=== PATIENT | male | born 1965 ===

== ENCOUNTER 2022-06-15 15:11 | Inpatient (IN) | payer MEDICAID ==
[2022-06-15] MEDS ORDERED: ACETAMINOPHEN TAB 325 MG TAB PO PRN (15:16)
[2022-06-15] MEDS ORDERED: HALOPERIDOL LACTATE 5 MG/ML 1 ML VIAL IM PRN (15:16)
[2022-06-15] MEDS ORDERED: ALBUTEROL INHALER 60 PUFF/8 GM INHALER (MHU) INHALATION PRN (15:16)
[2022-06-15] MEDS ORDERED: LORazepam 1 MG/0.5 ML VIAL IM PRN (15:16)
[2022-06-15] MEDS ORDERED: haloperidoL 5 MG TAB PO PRN (15:16)
[2022-06-15] MEDS ORDERED: MAGNESIUM HYDROXIDE 2,400 MG/10 ML CUP PO PRN (15:16)
[2022-06-15] MEDS ORDERED: LORazepam 1 MG TAB PO PRN (15:16)
[2022-06-15] MEDS ORDERED: MAG HYDROX/AL HYDROX/SIMETH 30 ML CUP PO PRN (15:16)
--- NOTE | 2022-06-15 17:49 | P.HPMEDMHU ---
History of Present Illness H&P Date: 06/15/22 Chief Complaint: med management Patient is a 57-year-old male with history of nicotine dependence, psychotic disorder presenting with acute psychosis and suicidal ideations. Patient is being admitted to mental health unit. [facility] has been consulted for medical management. Patient denies any chest pain, shortness of breath, abdominal pain, palpitations, nausea, vomiting, diarrhea, or constipation, or urinary symptoms. He claims that he has a remote hx of HTN, but no longer on meds as he is homeless. Smokes 1/2 ppd, no etoh or drug use. Patient seen and examined at bedside. Pertinent positives and negatives as discussed in HPI, a complete review of systems was performed and all other systems are negative. Vital signs reviewed. General: nontoxic, no distress, appears at stated age Derm: warm, dry Head: atraumatic, normocephalic, symmetric Eyes: EOMI, no lid lag, anicteric sclera, pupils equal round reactive to light ENT: Nose and ears atraumatic Neck: No thyromegaly, supple Mouth: no lip lesion, mucus membranes moist Cardiovascular: S1S2 reg, no murmur, no edema Lungs: clear to auscultation bilateral, no rhonchi, no rales, no wheeze, no accessory muscle use Abdominal: soft, nontender to palpation, no guarding, no appreciable organomegaly Ext: no gross muscle atrophy, muscle strength muscle strength 5 out of 5 in all 4 extremities, no contractures Neuro: CN II-XII grossly intact Psych: Alert, oriented, appropriate affect Assessment/Plan: Acute psychosis Psychotic disorder Suicidal ideations -Management per psychiatry Reported hx of HTN Not on any chronic medications -labs pending Full code Thank you for allowing us to participate in the care of this pleasant patient. Do not hesitate to contact us with questions. Someone can be reached from the [facility] hospitalist group all hours of the day at [phone] or via [employer]. Past Medical History Past Medical History: CVA/TIA, GERD/Reflux, Hypertension, Osteoarthritis (OA), Vascular Disorder History of Any Multi-Drug Resistant Organisms: None Reported Additional Past Surgical History / Comment(s): surgery to right and left shoulder Past Anesthesia/Blood Transfusion Reactions: No Reported Reaction Past Psychological History: Depression Smoking Status: Current every day smoker Past Alcohol Use History: None Reported Additional Past Alcohol Use History / Comment(s): quit 5 years ago. Past Drug Use History: Marijuana Additional Drug Use History / Comment(s): reports he quit this recently. Medications and Allergies Allergies Allergy/AdvReac Type Severity Reaction Status Date / Time No Known Allergies Allergy Verified 06/15/22 15:15 Physical Exam Vitals: Vital Signs Temp Pulse Resp BP Pulse Ox 06/15/22 17:12 97.7 F 73 16 110/78 99 Intake and Output 06/15/22 06/15/22 06/15/22 06:59 14:59 22:59 Other: Weight 78.528 kg Cranial Nerve Examination - Cranial Nerves Cranial Nerve II- Optic: Intact Cranial Nerve III- Oculomotor: Intact Cranial Nerve IV- Trochlear: Intact Cranial Nerve V- Trigeminal: Intact Cranial Nerve - Abducens: Intact Cranial Nerve VII- Facial: Intact Cranial Nerve VIII- Auditory: Intact Cranial Nerve IX- Glossopharyngeal: Intact Cranial Nerve X- Vagus: Intact Cranial Nerve XI- Accessory: Intact Cranial Nerve XII- Hypoglossal: Intact Thrombosis Risk Factor Assmnt - Choose All That Apply Any of the Below Risk Factors Present?: Yes Each Factor Represents 1 point: Age 41-60 years Other Risk Factors: No Other congenital or acquired thrombophilia - If yes, enter type in comment: No Thrombosis Risk Factor Assessment Total Risk Factor Score: 1 Thrombosis Risk Factor Assessment Level: Low Risk
[2022-06-15] MEDS: OLANZapine 5 MG TAB PO SCH (20:37)
[2022-06-16] MEDS ORDERED: PNEUMOC 20-VAL CONJ-DIP CRM/PF 0.5 ML SYRINGE IM ONE (10:00)
[2022-06-16] MEDS ORDERED: INFLUENZA VACC (6 MOS-64 YRS) 60 MCG/0.5 ML SYRINGE IM ONE (10:00)
[2022-06-16] MEDS: NICOTINE 14MG/24HR PATCH TRANSDERM SCH (11:10)
--- NOTE | 2022-06-16 12:55 | P.HP ---
Psychiatric H&P - . H&P Date: 06/16/22 History & Physical: Allergies Allergy/AdvReac Type Severity Reaction Status Date / Time No Known Allergies Allergy Verified 06/15/22 15:15 Vital Signs Temp 97.7 F 06/15/22 17:12 Pulse 73 06/15/22 17:12 Resp 16 06/15/22 17:12 BP 110/78 06/15/22 17:12 Pulse Ox 99 06/15/22 17:12 FiO2 Intake & Output 06/15/22 06/16/22 06/16/22 18:59 06:59 18:59 Weight 78.528 kg 06/16/22 12:54 IDENTIFYING DATA: Patient is a , unemployed, 57 year old - Guamanian male who was admitted under petition and cert from [facility] for suicidal ideation and auditory hallucinations. HPI: Patient presented to the hospital on 06/15/2022 from [facility] under petition and certification for psychosis and suicidal ideation. Upon evaluation on the psychiatric unit, the patient reports that he has been feeling increasingly depressed and suicidal since being kicked out of his home. He reports that he was staying with his ex- up to 3 weeks ago. He does report however that he has been experiencing auditory hallucinations for the past few months. He describes hearing multiple voices are telling him to hurt himself and hurt others. He reports that they're continuing at this moment. He states that he is able to control her urges to hurt himself or others at this time. In regards other depressive symptoms, the patient reports hopelessness and helplessness. He reports difficulty with sleep and a decreased appetite. He reports that he has previously attempted suicide many years ago. He reports that he has been previously diagnosed with schizophrenia however is unable to verbalize any previous medications or previous psychiatric hospitalizations. In regards to substance abuse, the patient does report that he does use crack cocaine. He states that it has been 9 months since his last use however the patient did test positive for cocaine upon admission. PAST PSYCHIATRIC HISTORY: Patient states that he has been intrusive diagnosed as "paranoid schizophrenic." Patient is unable to recall any previous psychiatric medications. Patient denies any previous psychiatric hospitalizations. Patient denies any psychiatric outpatient follow-up. Patient reports remote history of suicide attempts. PMH: Patient reports that he has GERD ALLERGIES: NO KNOWN DRUG ALLERGIES CHEMICAL DEPENDENCY HISTORY: The patient reports that he smokes half pack per day of tobacco. He denies any alcohol. He does report crack cocaine use. He did test positive for cocaine on admission however since that he last used cocaine 9 months ago. FAMILY PSYCHIATRIC/SUBSTANCE USE HISTORY: Reported family psychiatric history. SOCIAL HISTORY: Patient was born and raised in [place], [place]. He reports an eighth grade education. He reports that he is currently . He states he receives Social Security. He is currently homeless. He states that he has 1 daughter whom he is not in contact with. MENTAL STATUS EXAM: General Appearance: Patient appears to be stated age is alert, directable, and attempts to cooperate. Patient appears to have fair hygiene and grooming. Behavior: Patient is seated without any agitated behavior. Eye contact is appropriate. Speech: Patient's speech is fluent and nonpressured. Mood/Affect: Patient reports their mood is depressed, affect is congruent and constricted. Suicidality/Homicidality: Patient denies having any homicidal ideation intent or plan. Patient is currently endorsing suicidal ideation. Perceptions: Patient denies any visual hallucinations and denies any auditory hallucinations Though content/process: There is no evidence of any delusional thought content and thought process is linear and goal-directed. Memory and concentration: AOX3, grossly intact for the purposes of this session. Can spell "WORLD" backwards Judgment and insight: Fair STRENGTHS/WEAKNESSES: strength is that patient is resilient. Weakness is that patient has poor judgment and is impulsive INTELLECT: average IMPRESSIONS: Major depressive disorder, with psychotic features Stimmel and use disorder Tobacco use disorder PLAN: -Patient is admitted under voluntary status to MHU for stabilization of psychiatric symptoms and safety. Patient signed adult voluntary form and medication consent and is placed in patient's chart. -Medications : Will start patient on Zyprexa 5 mg by mouth at bedtime for psychosis Remeron 15 mg by mouth at bedtime for depression -Ativan and Haldol PRN for agitation/aggression -Patient was counselled on substance abuse and desired to cut back on use -Patient was informed of the risks, benefits and side effects of the medication and patient verbally consented to taking the medications. Patient signed med consent form and was placed in chart. -Internal Medicine consult to perform medical evaluation and physical. -NRT - nicotine patch -SW on board for discharge planning. Encourage patient to participate in groups to work on coping skills.
[2022-06-16] MEDS ORDERED: MAG HYDROX/AL HYDROX/SIMETH 355 ML BOTTLE PO PRN (14:59)
[2022-06-16 16:09] LABS: Basophils # (A) 0.1 k/uL (0-0.2); Basophils % (A) 1 %; Eosinophils # (A) 0.2 k/uL (0-0.7); Eosinophils % (A) 4 %; HCT 44.3 % (39.0-53.0); HGB 14.4 gm/dL (13.0-17.5); Lymphocytes # (A) 1.5 k/uL (1.0-4.8); Lymphocytes % (A) 40 %; MCH 30.2 pg (25.0-35.0); MCHC 32.6 g/dL (31.0-37.0); MCV 92.6 fL (80.0-100.0); Mean Platelet Volume 9.5; Monocytes # (A) 0.2 k/uL (0-1.0); Monocytes % (A) 7 %; Neutrophils # (A) 1.7 k/uL (1.3-7.7); Neutrophils % (A) 46 %; Platelet Count 217 k/uL (150-450); RBC 4.78 m/uL (4.30-5.90); RDW 12.9 % (11.5-15.5); WBC 3.7 k/uL (3.8-10.6)
[2022-06-16 16:52] LABS: ALT 22 U/L (4-49); AST 25 U/L (17-59); African American GFR (CKD) 86 (>60 ml/min/1.73 sqM); Albumin 4.3 g/dL (3.5-5.0); Alkaline Phosphatase 109 U/L (38-126); Anion Gap 8 mmol/L; Bilirubin, Delta 0.2 mg/dL (0.0-0.2); Bilirubin,Unconjugated 0.3 mg/dL (0.0-1.1); Blood Urea Nitrogen 15 mg/dL (9-20); Calcium 9.2 mg/dL (8.4-10.2); Carbon Dioxide 28 mmol/L (22-30); Chloride 104 mmol/L (98-107); Glucose 86 mg/dL (74-99); Non-African American GFR(CKD) 74 (>60 ml/min/1.73 sqM); Potassium 4.5 mmol/L (3.5-5.1); Sodium 140 mmol/L (137-145); Total Bilirubin 0.5 mg/dL (0.2-1.3); Total Protein 7.1 g/dL (6.3-8.2)
[2022-06-16] MEDS: PANTOPRAZOLE 40 MG TABLET PO SCH (17:40)
[2022-06-16] MEDS: OLANZapine 5 MG TAB PO SCH (19:59)
[2022-06-16] MEDS ORDERED: MIRTAZAPINE 15 MG TAB PO SCH (21:00)
[2022-06-16 23:40] LABS: Chol/HDL Ratio 2.93 Ratio; LDL Cholesterol,Calculated 73.8 mg/dL (0.0-131.0)
[2022-06-17] MEDS: PANTOPRAZOLE 40 MG TABLET PO SCH (08:42)
[2022-06-17] MEDS: NICOTINE 14MG/24HR PATCH TRANSDERM SCH (08:43)
[2022-06-17 11:07] VITALS: BP 136/98; PULSE 103; RESP 18; TEMP 97.4
--- NOTE | 2022-06-17 11:35 | P.DS ---
Providers Date of admission: 06/15/22 16:24 Expected date of discharge: 06/17/22 Attending physician: Yadiel Mckenzie MD Consults: 06/15/22 15:16 Consult Physician Routine Consulting Provider: Shahab Lira Consult Reason/Comments: Medical H&P Do you want consulting provider notified?: Yes Primary care physician: Stated None - Discharge Diagnosis(es) (1) Major depressive disorder Current Visit: Yes Status: Acute Priority: High (2) Stimulant use disorder Current Visit: Yes Status: Chronic Priority: Medium (3) Tobacco use disorder Current Visit: Yes Status: Chronic Priority: Medium (4) Malingering Current Visit: Yes Status: Suspected Priority: Medium Hospital Course: Admission HPI: Patient is a , unemployed, 57 year old -[place] male who was admitted under petition and cert from [facility] for suicidal ideation and auditory hallucinations. Patient presented to the hospital on 06/15/2022 from [facility] under petition and certification for psychosis and suicidal ideation. Upon evaluation on the psychiatric unit, the patient reports that he has been feeling increasingly depressed and suicidal since being kicked out of his home. He reports that he was staying with his ex- up to 3 weeks ago. He does report however that he has been experiencing auditory hallucinations for the past few months. He describes hearing multiple voices are telling him to hurt himself and hurt others. He reports that they're continuing at this moment. He states that he is able to control her urges to hurt himself or others at this time. In regards other depressive symptoms, the patient reports hopelessness and helplessness. He reports difficulty with sleep and a decreased appetite. He reports that he has previously attempted suicide many years ago. He reports that he has been previously diagnosed with schizophrenia however is unable to verbalize any previous medications or previous psychiatric hospitalizations. In regards to substance abuse, the patient does report that he does use crack cocaine. He states that it has been 9 months since his last use however the patient did test positive for cocaine upon admission. Patient states that he has been intrusive diagnosed as "paranoid schizophrenic." Patient is unable to recall any previous psychiatric medications. Patient denies any previous psychiatric hospitalizations. Patient denies any psychiatric outpatient follow-up. Patient reports remote history of suicide attempts. Hospital course: Upon admission to the unit patient was initially displaying a euthymic affect despite reporting suicidal thoughts and psychosis. Furthermore, the patient did report that he was only suicidal and experiencing psychiatric symptoms because of his new state of homelessness. Patient was however directable and agreeable to commence treatment. Patient got along well with other patients on the unit and followed unit protocol. Patient was compliant with the medications and denied any side effects throughout hospital course. Patient was started on Zyprexa and Remeron for management of psychosis and depression. The patient was also seen by medical team for history and physical examination. He did not attend many groups and preferred to spend the day sleeping in his room. On the day of discharge, the patient is denying any suicidal or homicidal ideation, intention, and/or plan. He is not reporting any auditory or visual hallucinations. He denies any paranoia or delusions. He expresses that he will likely go find a half-way to stay in [facility]. The patient was counseled on importance of medication adherence appropriate outpatient follow-up. The patient does have a significant history of stimulant abuse and tobacco abuse and was counseled great length on abstaining from all the substances. As the patient no longer met criteria for inpatient psychiatric admission, he was subsequently discharged. Mental status exam: General Appearance: Patient appears to be stated age is alert, pleasant, and cooperative. Patient is in no acute distress and has fair hygiene and grooming Behavior: Patient is calmly seated without any agitated behavior. Speech: Patient's speech is fluent and nonpressured. Mood/Affect: Patient reports their mood is "doing okay", affect is congruent and euthymic. Suicidality/Homicidality: Patient denies having any suicidal or homicidal ideation intent or plan. Perceptions: Patient denies any auditory or visual hallucinations. Though content/process: There is no evidence of any delusional thought content and thought process is linear and goal-directed. Patient is future oriented. Memory and concentration: AOX3, grossly intact for the purposes of this session. Can spell "WORLD" backwards correctly. Judgment and insight: Improved with guarded prognosis Impression: Major depressive disorder, with psychotic features Stimulant use disorder Tobacco use disorder Malingering - secondary gain for housing and half-way Plan: -Continue with discharge today as patient has improved and stabilized psychiatrically and is not currently an imminent threat to himself and/or others. Patient will remain at chronically elevated risk for harm to self and/or others due to his substance abuse and homelessness. -Continue medications: Zyprexa 5 mg daily at bedtime for psychosis Remeron 15 mg daily at bedtime for depression/appetite stimulation -Patient was counseled on the need for medication compliance and appropriate follow-up at mental health and also primary care for medical issues. Patient verbalized understanding and agreed. -Social work to arrange for and conduct family meeting to ensure safety upon discharge and answer any questions/concerns. Social work also to arrange for patients follow up appointments for psychiatric care along with follow up with primary care provider. -Patient counseled on abstaining from recreational drugs and marijuana and alcohol. Was informed/educated on the adverse effects on their physical and mental health. Patient verbally agreed and understood. -Patient was instructed to return to the hospital or seek immediate medical care if their psychiatric or medical symptoms do worsen or reoccur. -Psychoeducation and supportive therapy provided to patient. Risks and benefits of pharmacological treatment versus the risks and benefits of nontreatment weight and discussed. Informed consent discussion held. Common side effects of psychotropics discussed such as, but not limited to headache, GI disturbance, sexual dysfunction, movement disorders, sedation, and orthostatic hypotension. Life threatening and blackbox warnings of prescribed medications also discussed. Potential risks of operating a vehicle or heavy machinery discussed with patient at length. Advised on importance of compliance and a reliable and responsible manner. Patient advised to review FDA consumer labeling of all medications prior to taking. Patient verbalized understanding of potential risks, and agrees with current treatment plan. Patient advised to medically contact physician/emergency personnel if any acute changes in condition occur. Vital Signs Temp 97.4 F L 06/17/22 11:06 Pulse 103 H 06/17/22 11:06 Resp 18 06/17/22 11:06 BP 136/98 06/17/22 11:06 Pulse Ox 99 06/15/22 17:12 FiO2 Laboratory Results WBC 3.7 k/uL (3.8-10.6) L 06/16/22 15:26 RBC 4.78 m/uL (4.30-5.90) 06/16/22 15:26 Hgb 14.4 gm/dL (13.0-17.5) 06/16/22 15:26 Hct 44.3 % (39.0-53.0) 06/16/22 15:26 MCV 92.6 fL (80.0-100.0) 06/16/22 15: MCH 30.2 pg (25.0-35.0) 06/16/22 15: MCHC 32.6 g/dL (31.0-37.0) 06/16/22 15: RDW 12.9 % (11.5-15.5) 06/16/22 15: Plt Count 217 k/uL (150-450) 06/16/22 15: MPV 9.5 06/16/22 15: Neutrophils % 46 % 06/16/22 15: Lymphocytes % 40 % 06/16/22 15: Monocytes % 7 % 06/16/22 15: Eosinophils % 4 % 06/16/22 15: Basophils % 1 % 06/16/22 15: Neutrophils # 1.7 k/uL (1.3-7.7) 06/16/22 15: Lymphocytes # 1.5 k/uL (1.0-4.8) 06/16/22 15: Monocytes # 0.2 k/uL (0-1.0) 06/16/22 15: Eosinophils # 0.2 k/uL (0-0.7) 06/16/22 15: Basophils # 0.1 k/uL (0-0.2) 06/16/22 15:26 Sodium 140 mmol/L (137-145) 06/16/22 15:26 Potassium 4.5 mmol/L (3.5-5.1) 06/16/22 15: Chloride 104 mmol/L (98-107) 06/16/22 15: Carbon Dioxide 28 mmol/L (22-30) 06/16/22 15:26 Anion Gap 8 mmol/L 06/16/22 15:26 BUN 15 mg/dL (9-20) 06/16/22 15:26 Creatinine 1.09 mg/dL (0.66-1.25) 06/16/22 15:26 Est GFR (CKD-EPI)AfAm 86 (>60 ml/min/1.73 sqM) 06/16/22 15:26 Est GFR (CKD-EPI)NonAf 74 (>60 ml/min/1.73 sqM) 06/16/22 15:26 Glucose 86 mg/dL (74-99) 06/16/22 15:[address] Glu mg/dL 115 06/16/22 15:26 Hemoglobin A1c 5.6 % (0.0-6.0) 06/16/22 15:26 Calcium 9.2 mg/dL (8.4-10.2) 06/16/22 15:26 Total Bilirubin 0.5 mg/dL (0.2-1.3) 06/16/22 15:26 Conjugated Bilirubin 0.0 mg/dL (0.0-0.3) 06/16/22 15:26 Unconjugated Bilirubin 0.3 mg/dL (0.0-1.1) 06/16/22 15:26 Delta Bilirubin 0.2 mg/dL (0.0-0.2) 06/16/22 15:26 AST 25 U/L (17-59) 06/16/22 15:26 ALT 22 U/L (4-49) 06/16/22 15:26 Alkaline Phosphatase 109 U/L (38-126) 06/16/22 15:26 Total Protein 7.1 g/dL (6.3-8.2) 06/16/22 15:26 Albumin 4.3 g/dL (3.5-5.0) 06/16/22 15:26 Triglycerides 155.00 mg/dL (0.00-149.00) H 06/16/22 15:26 Cholesterol 159.00 mg/dL (0.00-200.00) 06/16/22 15:26 LDL Cholesterol, Calc 73.8 mg/dL (0.0-131.0) 06/16/22 15:26 VLDL Cholesterol, Calc 31.00 mg/dL (5.00-40.00) 06/16/22 15:26 HDL Cholesterol 54.20 mg/dL (40.00-60.00) 06/16/22 15:26 Cholesterol/HDL Ratio 2.93 Ratio 06/16/22 15:26 TSH 0.548 mIU/L (0.465-4.680) 06/16/22 15:26 Allergies Allergy/AdvReac Type Severity Reaction Status Date / Time No Known Allergies Allergy Verified 06/15/22 15:15 Patient Condition at Discharge: Stable Plan - Discharge Summary Discharge Rx Participant: No New Discharge Prescriptions: New Mirtazapine [Remeron] 15 mg PO HS 30 Days tab Pantoprazole [Protonix] 40 mg PO AC-BID 30 Days tab OLANZapine [ZyPREXA] 5 mg PO HS 30 Days tab Discharge Medication List Mirtazapine [Remeron] 15 mg PO HS 30 Days tab 06/17/22 [Rx] OLANZapine [ZyPREXA] 5 mg PO HS 30 Days tab 06/17/22 [Rx] Pantoprazole [Protonix] 40 mg PO AC-BID 30 Days tab 06/17/22 [Rx] Follow up Appointment(s)/Referral(s): Radha Blanco [Other] - 07/12/22 2:00 pm (If patient needs sooner appointment, patient can walk in to [facility] (formerly [facility]) at [id number] [place] [address] P [phone] F [phone]) Discharge Disposition: HOME SELF-CARE
== END 2022-06-17 12:40 | disposition home or self-care (01) | DRG 885 ==
LOC: 3MHU 16:24
PROVIDERS: ADMIT Psychiatry & Neurology Psychiatry; ATTEND Psychiatry & Neurology Psychiatry
DX: F32.3 Major depressive disorder, single episode, severe with psychotic features (principal); R45.851 Suicidal ideations; F15.10 Other stimulant abuse, uncomplicated; F14.10 Cocaine abuse, uncomplicated; I10 Essential (primary) hypertension; K21.9 Gastro-esophageal reflux disease without esophagitis; F17.210 Nicotine dependence, cigarettes, uncomplicated; T46.5X6A Underdosing of other antihypertensive drugs, initial encounter; Z91.120 Patient's intentional underdosing of medication regimen due to financial hardship; Z28.310 Unvaccinated for COVID-19; Z91.51 Personal history of suicidal behavior; Z59.00 Homelessness unspecified; Z76.5 Malingerer [conscious simulation]; Z56.0 Unemployment, unspecified
CPT/HCPCS: 80053; 80061; 82248; 83036; 84443; 85025; 90686